=== PATIENT | male | born 1995 | race Two or more races ===

== ENCOUNTER 2022-06-17 23:10 | Emergency (ER) | payer MEDICAID ==
[~2022-06-17] VITALS: Ht 177.8 cm; Wt 68.0 kg
[2022-06-18 01:42] VITALS: BP 118/62
[2022-06-18] MEDS ORDERED: PENICILLIN G BENZATHINE 2.4 MMU/4 ML ML IM ONE ×2 (01:53→02:00)
== END 2022-06-18 02:16 | disposition home or self-care (01) ==
LOC: ER 23:14 → EDSEX 23:14 → ER 06-18 02:16
DX: A53.9 Syphilis, unspecified (principal); Z60.2 Problems related to living alone
CPT/HCPCS: 99283; 96372; J0558

== ENCOUNTER 2022-11-19 16:49 | Emergency (ER) | payer MEDICAID ==
[~2022-11-19] VITALS: Ht 177.8 cm; Wt 68.5 kg
[2022-11-19 17:08] VITALS: BP 124/68; TEMP 98.9; O2SAT 98
[2022-11-19] MEDS ORDERED: BACI3.5O23 TOP (17:49)
[2022-11-19] MEDS ORDERED: CEPH500T PO (17:49)
[2022-11-19] MEDS ORDERED: IBUP-1955 PO (17:49)
== END 2022-11-19 18:01 | disposition home or self-care (01) ==
LOC: ER 16:52
DX: S00.422A Blister (nonthermal) of left ear, initial encounter (principal); H61.892 Other specified disorders of left external ear; Z60.2 Problems related to living alone; X58.XXXA Exposure to other specified factors, initial encounter; Y93.89 Activity, other specified; Y92.89 Other specified places as the place of occurrence of the external cause; Y99.8 Other external cause status